=== PATIENT | female | born 1965 | race Caucasian/White ===

== ENCOUNTER → 2023-05-04 06:25 | Day surgery (SDC) | payer BC, SELFPAY | LOC: GI 06:25 | PROVIDERS: ATTENDING PHYSICIAN Internal Medicine Gastroenterology | DX: K57.30 Diverticulosis of large intestine without perforation or abscess without bleeding (principal); K64.8 Other hemorrhoids; Z87.19 Personal history of other diseases of the digestive system | CPT/HCPCS: 45378 ==

== ENCOUNTER 2024-06-11 23:14 | Emergency (ER) | payer BC, SELFPAY ==
[2024-06-11 23:17] VITALS: BP 85/50
[2024-06-12] VITALS (14 sets, daily range): BP systolic 64–131; BP diastolic 35–68; PULSE 63–66
[2024-06-12 00:26] LABS: % Basophils 0.4 % (0-2); % Eosinophils 0.7 % (0-6); % Immature Granulocytes 0.4 % (0-0.5); % Lymphocytes 20.5 % (20.5-51.1); % Monocytes 6.3 % (1.7-9.3); % Neutrophils 71.7 % (42.2-75.2); Absolute Basophils 0.1 10^3/uL (0-0.2); Absolute Eosinophils 0.1 10^3/uL (0-0.7); Absolute Immature Granulocytes 0.1 10^3/uL (0-0.05); Absolute Lymphocytes 2.8 10^3/uL (1.2-3.4); Absolute Monocytes 0.9 10^3/uL (0.1-0.6); Absolute Neutrophils 9.7 10^3/uL (1.4-6.5); Hemoglobin 13.6 g/dL (12.0-16.0); Mean Corp Hgb Conc. 34.9 g/dL (33.0-37.0); Mean Corpuscular Hgb 31.6 pg (27.0-31.0); Mean Corpuscular Volume 90.7 fL (81.0-99.0); Mean Platelet Volume 10.5 fL (7.4-10.4); Nucleated Red Blood Cells % 0 %; Platelet Count 228 10^3/uL (130-400); Red Cell Dist. Width 11.9 % (11.5-14.5); White Blood Cell Count 13.5 10^3/uL (4.8-10.8)
--- NOTE | 2024-06-12 00:26 | ED.GENMED ---
History of Present Illness
General
Chief Complaint: Fainting/Passed Out
Source: patient
Exam Limitations: none
Time Seen by Provider: 06/12/24 00:15
Nursing documentation reviewed up to this point in time: agreed with
History of Present Illness
History of Present Illness:
Pleasant 58-year-old female presents to the emergency department after syncope and collapse. 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 She went for a walk and then ate dinner and she passed out hitting her head on the counter. Denies
any neck pain. She thinks she just grazed her scalp. She states that she hydrated normally today drinking 20 ounces of fluid past 5 PM. She did have a [employer] energy drink. She denies chest pain or shortness of breath.
Review of Systems
Review of Systems
Allergies reviewed?: Yes
All Other Systems: ROS reviewed and negative except as documented in HPI and ROS
Constitutional: Reports no symptoms
EENT: Reports no symptoms
Respiratory: Reports no symptoms
Cardiac: Reports syncope
ABD/GI: Reports no symptoms
: Reports no symptoms
Musculoskeletal: Reports no symptoms
Skin: Reports no symptoms
Neurological: Reports no symptoms
Endocrine: Reports no symptoms
Hematologic/Lymphatic: Reports no symptoms
Psychiatric: Reports no symptoms
Phy Exam
General Physical Exam
General Presentation: well appearing and no apparent distress
General Skin: warm and dry
General Habitus: normal
General Mental: alert
General Hydration: appears well hydrated
ENT Exam
ENT Exam: EOMI, pharynx normal, neck supple and normocephalic
Eye Exam
Eye Exam: PERRL, cornea clear and conjunctiva normal
Cardiovascular Exam
Cardiovascular Exam: regular rate/rhythm, no edema, no murmur and normal peripheral pulses
Pulmonary Exam
Pulmonary Exam: lungs clear, no respiratory distress, no rales, no crackles, no rhonchi, no stridor, no wheezing and no cough
Gastrointestinal Exam
Gastrointestinal Exam: normal bowel sounds, non tender, soft, no organomegaly, no pulsatile mass and non distended
Neurological Exam
Neurological Exam: alert, oriented x3, no motor deficits and speech normal
Musculoskeletal Exam
Musculoskeletal Exam: full ROM and no edema
Skin Exam
Skin Exam: normal color, warm/dry, no rash and no petechia
Psychiatric Exam
Psychiatric Exam: normal mood/affect
Course
Orders/Labs/Results
Orders:
Orders
06/11/24 23:20
Electrocardiogram (*1) Urgent
Reason for Study: Syncope
Complete Blood Count/With Diff Urgent
Comprehensive Metabolic Panel Urgent
Troponin I Urgent
06/11/24 23:21
EKG- Treatment ONCE
06/12/[address] Cervical Spine W/o Iv Contr Urgent
Reason For Exam: SYNCOPE
CT Head W/o Iv Contrast Urgent
Reason For Exam: SYNCOPE
06/12/24 02:49
Orthostatic VS- Treatment ONCE
Abnormal Lab Results
06/12/24
00:13
WBC 13.5 H 10^3/uL
(4.8-10.8)
MCH 31.6 H pg
(27.0-31.0)
MPV 10.5 H fL
(7.4-10.4)
Abs Immat Gran (auto) 0.1 H 10^3/uL
(0-0.05)
Absolute Neuts (auto) 9.7 H 10^3/uL
(1.4-6.5)
Absolute Monos (auto) 0.9 H 10^3/uL
(0.1-0.6)
Potassium 3.4 L mmol/L
(3.5-5.1)
BUN 19 H mg/dl
(7-17)
Glucose 162 H mg/dl
(70-99)
04/30/25 00:13
06/12/24 00:13
Vital Signs
Initial and Last Documented VS:
Initial Vital Signs
Temp Pulse Resp BP Pulse Ox
98.2 F 74 20 85/50 98
06/11/24 23:17 06/11/24 23:17 06/11/24 23:17 06/11/24 23:17 06/11/24 23:17
Last Documented Vital Signs
Temp Pulse Resp BP Pulse Ox
98.2 F 79 35 119/66 98
06/11/24 23:17 06/12/24 03:04 06/12/24 03:04 06/12/24 03:04 06/12/24 03:04
*Critical Care Note
Total Time (30-74mins, 75-104mins- exclusive of procedures): Not Applicable
Update Note
Update Note:
Patient able to ambulate around the room in the ER without issue. Her orthostatics have improved. Patient is asymptomatic. Patient wishes to be discharged.
ED Attending Note
-
Portions of this chart may have been created with voice recognition software.� Occasional wrong word or��sound alike� substitutions may have occurred due to the inherent limitations of voice recognition software.
Discharge Plan
Departure
Patient Disposition: Home (Routine Discharge)
Date of Disposition: 06/12/24
Time of Disposition: 03:13
Patient with high blood pressure during this ER visit?: Yes
Condition: Good
Discharge Problem:
Syncope, vasovagal
Prescriptions:
No Action
amoxicillin-pot clavulanate 875-125 mg tablet
1 tab PO BID Qty: 14 0RF
Referrals:
Kristie Hernández PA-C [Family Provider] -
Stand Alone Forms: Return to Work
Interventions
Interventions:
*Risk Screen - Suicide Last Done: 06/11/24 23:17
*General Assessment Last Done: 06/12/24 02:05
*Neglect/Abuse Screening Last Done: 06/11/24 23:17
*ED- Fall Risk Assessment Last Done: 06/12/24 02:05
*ED COVID-19 Vaccine History Last Done: 06/12/24 02:05
ED- Cardiac Assessment Last Done: 06/12/24 00:55
ED- Neurological Assessment Last Done: 06/12/24 00:55
ED- Pulmonary Assessment Last Done: 06/12/24 00:55
ED-Skin Assessment Last Done: 06/12/24 00:55
Discharge Date and Time
Print Language: SAMI
[2024-06-12 00:40] LABS: ALT (SGPT) 19 U/L (0-35); AST (SGOT) 24 U/L (14-36); Albumin 4.8 g/dl (3.5-5.0); Alkaline Phosphatase 81 U/L (38-126); Blood Urea Nitrogen 19 mg/dl (7-17); Calcium 9.5 mg/dl (8.4-10.2); Carbon Dioxide 24 mmol/L (22-30); Chloride 104 mmol/L (98-107); Glucose 162 mg/dl (70-99); Potassium 3.4 mmol/L (3.5-5.1); Sodium 142 mmol/L (135-145); Total Bilirubin 0.6 mg/dl (0.2-1.3); Total Protein 7.9 g/dl (6.3-8.2); eGFR > 60.00
[2024-06-12 00:51] LABS: Troponin I < 0.012 ng/ml
== END 2024-06-12 03:42 | disposition home or self-care (01) ==
LOC: EMR 23:14
PROVIDERS: EMERGENCY PHYSICIAN Student in an Organized Health Care Education/Training Program; FAMILY PHYSICIAN Physician Assistant
DX: R55 Syncope and collapse (principal); S09.90XA Unspecified injury of head, initial encounter; W22.09XA Striking against other stationary object, initial encounter
CPT/HCPCS: 99284; 70450; 72125; 80053; 84484; 85025; 93005